=== PATIENT | male | born 1945 | race Hispanic/Latino ===

== ENCOUNTER 2024-02-12 13:54 | Outpatient (CLI) | payer OTHER | END 2024-02-12 13:55 | disposition home or self-care (01) | LOC: CSHLAB 13:54 | PROVIDERS: ATTEND Surgery | DX: Z01.818 Encounter for other preprocedural examination (principal); C49.0 Malignant neoplasm of connective and soft tissue of head, face and neck | CPT/HCPCS: 93005; 93010 ==

== ENCOUNTER 2024-02-16 05:30 | Day surgery (SDC) | payer OTHER ==
[2024-02-12 14:47] VITALS: BMI 25.8
== END 2024-02-16 09:00 | disposition home or self-care (01) ==
LOC: CSHSDC 05:30
PROVIDERS: ATTEND Surgery
PROC: 0JH60WZ Insertion of Totally Implantable Vascular Access Device into Chest Subcutaneous Tissue and Fascia, Open Approach (ICD-10-PCS; principal; 2024-02-16)
DX: C44.40 Unspecified malignant neoplasm of skin of scalp and neck (principal); E11.9 Type 2 diabetes mellitus without complications; I25.10 Atherosclerotic heart disease of native coronary artery without angina pectoris; I10 Essential (primary) hypertension; E78.00 Pure hypercholesterolemia, unspecified; Z87.891 Personal history of nicotine dependence; Z79.82 Long term (current) use of aspirin; Z79.84 Long term (current) use of oral hypoglycemic drugs; Z79.899 Other long term (current) drug therapy
CPT/HCPCS: 36561; 71045; J0171; J0665; J1200; J1642; J2405; J2704; J3010; A6258; C1788